=== PATIENT | male | born 1980 | race Caucasian/White ===

== ENCOUNTER → 2017-01-26 | Outpatient (CLI) | payer BC ==
[~2017-01-26] MED LIST: HYDR1TAB PO; LEVO500T78 PO; NAPR550T PO; ONDA8TAB13 PO; OXYC-309 PO; PHEN200T27 PO; SULF1TAB38 PO; TAMS0.4C2 PO; TRAM5POW3 PO
--- OUTSIDE RECORDS SUMMARY | 2017-01-26 16:42 | XMS REPORT | Continuity of Care Document ---
Demographics Preferred Language Unknown Marital Status Unknown Oriental Orthodox Affiliation Unknown Race Unknown Ethnic Group Unknown Author Author [facility] Organization [facility] Address Unknown Phone Unavailable Allergies Active Description Code Type Severity Reaction Onset Reported/Identified Relationship to Patient Clinical Status Yes No known drug allergies [id number] ND N/A N/A Confirmed or Verified Medications Problems Date Dx Coded Attending Type Code Diagnosis Diagnosed By 04/08/2014 NAY MORROW 592.1 CALCULUS OF URETER 04/08/2014 NAY MORROW 789.09 ABDOMINAL PAIN, OTHER 04/08/2014 NAY MORROW V13.01 PERSONAL HISTORY URINARY Procedures Code [place] [address] URINALYSIS, AUTO W/SCOPE 04/08/2014 03521 EMERGENCY DEPT VISIT 04/08/2014 07133 EMERGENCY DEPT VISIT 04/08/2014 Results Test Result Range UA - 04/08/14 00:00 PH 6.0 4.5-8.0 SG 1.025 1.003-1.035 UABILI NEGATIVE UABLD 3+ UACOLOR YEL UAGLU NEGATIVE UAKET NEGATIVE UALEUK NEGATIVE UANIT NEGATIVE UAURO 0.2 0-0.2 CLARITY CL PROTEIN NEGATIVE UA WBC R05 UA RBC R1020 BACTERIA RARE MUCOUS 1+ Encounters ACCT No. Visit Date/Time Discharge Status Pt. Type Provider Facility Loc./Unit Complaint [id number] 04/08/2014 03:06:00 04/08/2014 04 :00:00 DIS Emergency NAY MORROW EMR [id number] 10/29/2013 00:00:00 Document Registration
--- NOTE | 2017-01-26 18:43 | Diagnostic Imaging Report ---
INDICATION: A 36-year-old male presents with right-sided pain, history of kidney stones. COMPARISONS: 04/14/2014. FINDINGS: KUB shows the lung bases to be clear. There is scattered gas in the small and large bowel with gas seen to the rectum. There is no organomegaly or abnormal calcifications. The renal contour is poorly delineated, but there are no definite abnormal calcifications seen. IMPRESSION: Normal KUB; if clinically warranted, a nonenhanced CT of the abdomen and pelvis may be of further value. Dictated by: Dictated on workstation # [id number]
== END ==
LOC: RAD 16:39
PROVIDERS: ATTEND Nurse Practitioner Family
DX: Z09 Encounter for follow-up examination after completed treatment for conditions other than malignant neoplasm (principal); Z87.442 Personal history of urinary calculi
CPT/HCPCS: 74000

== ENCOUNTER → 2018-04-20 | Outpatient (CLI) | payer BC ==
[2018-04-20 15:43] LABS: BASOPHILS % (AUTO) 0 % (0-10); EOSINOPHILS # (AUTO) 0.1 10^3/uL (0.0-0.3); EOSINOPHILS % (AUTO) 1 % (0-10); HEMATOCRIT 45 % (40-54); HEMOGLOBIN 15.9 G/DL (13.3-17.7); LYMPHOCYTES # (AUTO) 1.7 X 10^3 (1.0-4.0); LYMPHOCYTES % (AUTO) 22 % (12-44); MEAN CORPUSCULAR HEMOGLOBIN 31 PG (25-34); MEAN CORPUSCULAR HGB CONC 35 G/DL (32-36); MEAN CORPUSCULAR VOLUME 87 FL (80-99); MEAN PLATELET VOLUME 11.3 FL (7.4-10.4); MONOCYTES # (AUTO) 0.6 X 10^3 (0.0-1.0); MONOCYTES % (AUTO) 7 % (0-12); NEUTROPHILS # (AUTO) 5.2 X 10^3 (1.8-7.8); NEUTROPHILS % (AUTO) 69 % (42-75); PLATELET COUNT 196 10^3/uL (130-400); RED BLOOD COUNT 5.15 10^6/uL (4.35-5.85); RED CELL DISTRIBUTION WIDTH 13.4 % (10.0-14.5); WHITE BLOOD COUNT 7.5 10^3/uL (4.3-11.0)
[2018-04-20 15:58] LABS: ALANINE AMINOTRANSFERASE 78 U/L (0-55); ALBUMIN 4.3 GM/DL (3.2-4.5); ALKALINE PHOSPHATASE 58 U/L (40-136); BILIRUBIN,TOTAL 0.8 MG/DL (0.1-1.0); BUN/CREATININE RATIO 11; CARBON DIOXIDE 22 MMOL/L (21-32); CHLORIDE 110 MMOL/L (98-107); CHOLESTEROL 142 MG/DL (< 200); CREATININE SERUM 0.81 MG/DL (0.60-1.30); GFR ESTIMATED > 60; GLUCOSE 85 MG/DL (70-105); HDL CHOLESTEROL 42 MG/DL (40-60); POTASSIUM 3.9 MMOL/L (3.6-5.0); SODIUM 141 MMOL/L (135-145); TOTAL PROTEIN 7.3 GM/DL (6.4-8.2); TRIGLYCERIDES 68 MG/DL (<150); URIC ACID 5.4 MG/DL (2.6-7.2); VLDL CHOLESTEROL 14 MG/DL (5-40)
== END ==
LOC: CARD 15:10
PROVIDERS: ATTEND Nurse Practitioner Family
DX: R07.9 Chest pain, unspecified (principal)
CPT/HCPCS: 36415; 80053; 80061; 84484; 84550; 85025; 93005